=== PATIENT | female | born 1990 | race Two or more races ===

== ENCOUNTER 2017-01-04 07:38 | Inpatient (IN) | payer MEDICAID, OTHER ==
[~2017-01-04] VITALS: Ht 152.4 cm; Wt 68.6 kg
[2017-01-04 08:14] VITALS: BP 131/83
[2017-01-04 08:33] VITALS: BP 131/83
[2017-01-04] MEDS ORDERED: FLU VACC QS2017-18 (36MOS+) UP/PF 0.5 ML IM-VACC ONE (09:00)
[2017-01-04] MEDS ORDERED: FENTANYL PF 100 MCG/2ML ONE ×2 (10:53→18:34)
[2017-01-04] MEDS: FENTANYL PF 100 MCG/2ML IVPush PRN ×2 (10:59→15:12)
[2017-01-04] MEDS ORDERED: LACTATED RINGERS 1,000 ML IVBOLUS ONE ×2 (11:00→14:30)
[2017-01-04] MEDS: D5%-LACTATED RINGERS 1,000 ML IV SCH ×2 (11:15→20:00)
[2017-01-04] MEDS ORDERED: LACTATED RINGERS 1,000 ML IV SCH ×2 (14:00→14:08)
[2017-01-04] MEDS ORDERED: OXYTOCIN 30U/ 0.9% NaCL 500ML 500 ML IV SCH ×2 (14:08→20:21)
[2017-01-04 14:45] LABS: HEMATOCRIT 37.1 % (34.6-47.8); HEMOGLOBIN 12.6 g/dL (11.7-16.4); WHITE BLOOD COUNT 11.1 x10^3/uL (3.4-10)
[2017-01-04] MEDS ORDERED: SODIUM CITRATE/CITRIC ACID 30 ML UDC ONE ×2 (16:31→18:33)
[2017-01-04] MEDS ORDERED: METOCLOPRAMIDE 5 MG/ML, 2ML ONE ×2 (16:32→18:33)
[2017-01-04] MEDS ORDERED: MISOPROSTOL 200 MCG TABLET ONE (16:32)
[2017-01-04] MEDS ORDERED: OXYTOCIN 30U/ 0.9% NaCL 500ML 500 ML ONE (16:32)
[2017-01-04] MEDS ORDERED: NEWBORN KIT ONE (16:33)
[2017-01-04] MEDS ORDERED: METOCLOPRAMIDE 5 MG/ML, 2ML IVPush ONE (17:30)
[2017-01-04] MEDS ORDERED: SODIUM CITRATE/CITRIC ACID 30 ML UDC PO ONE (17:30)
[2017-01-04] MEDS ORDERED: ONDANSETRON 2MG/ML, 2ML ONE (18:34)
[2017-01-04] MEDS ORDERED: KETOROLAC 30 MG/1 ML ONE (18:34)
[2017-01-04] MEDS ORDERED: OXYTOCIN 10 UNITS/ML, 1ML ONE (18:34)
[2017-01-04] MEDS ORDERED: DEXAMETHASONE 4 MG/ML, 1ML ONE (18:34)
[2017-01-04] MEDS ORDERED: EPHEDRINE 50 MG/ML, 1ML ONE (18:34)
[2017-01-04] MEDS ORDERED: PHENYLEPHRINE 10 MG/ML ONE (18:34)
[2017-01-04] MEDS ORDERED: CEFAZOLIN 1,000 MG ONE (18:34)
[2017-01-04] MEDS ORDERED: OXYcodone/APAP 5/325MG TABLET PO PRN (20:30)
[2017-01-04] MEDS ORDERED: CALCIUM CARBONATE 500 MG TAB.CHEW PO PRN (20:30)
[2017-01-04] MEDS ORDERED: OXYTOCIN 10 UNITS/ML, 1ML IM PRN (20:30)
[2017-01-04] MEDS ORDERED: MAGNESIUM HYDROXIDE 8%, 30ML UDC PO PRN (20:30)
[2017-01-04] MEDS ORDERED: ONDANSETRON 2MG/ML, 2ML IV PRN (20:30)
[2017-01-04] MEDS ORDERED: METHYLERGONOVINE 0.2 MG/ML IM PRN (20:30)
[2017-01-04] MEDS ORDERED: ACETAMINOPHEN 325 MG TABLET PO PRN (20:30)
[2017-01-04] MEDS ORDERED: OXYcodone 5 MG/5 ML ORAL.SOL UDC ONE (20:41)
[2017-01-04] MEDS: OXYTOCIN 30U/ 0.9% NaCL 500ML 500 ML IV SCH (20:47)
[2017-01-04] MEDS ORDERED: OXYcodone 5 MG/5 ML ORAL.SOL UDC PO PRN (21:00)
[2017-01-04 21:50] VITALS: BP 139/91
[2017-01-04] MEDS: OXYcodone IR 5MG TABLET PO PRN (22:33)
[2017-01-05 00:30] VITALS: BP 113/62
[2017-01-05] MEDS: ACETAMINOPHEN 325 MG TABLET PO PRN ×3 (00:53→21:18)
[2017-01-05] MEDS: IBUPROFEN 600 MG TABLET PO PRN ×3 (03:15→16:57)
[2017-01-05] MEDS: OXYcodone IR 5MG TABLET PO PRN ×5 (03:16→21:18)
[2017-01-05 05:18] LABS: HEMATOCRIT 33.8 % (34.6-47.8); HEMOGLOBIN 11.6 g/dL (11.7-16.4)
[2017-01-05 05:30] VITALS: BP 110/64
[2017-01-05] MEDS: OXYTOCIN 30U/ 0.9% NaCL 500ML 500 ML IV SCH ×2 (06:21→16:21)
[2017-01-05] MEDS ORDERED: PRENATAL VIT/IRON/FA 1 EACH TABLET ONE (07:57)
[2017-01-05] MEDS: PRENATAL VIT/IRON/FA 1 EACH TABLET PO SCH (08:00)
[2017-01-05] MEDS: DOCUSATE 100 MG CAPSULE PO PRN ×2 (08:00→21:16)
[2017-01-05 21:00] VITALS: BP 103/59
[2017-01-06] MEDS: OXYcodone IR 5MG TABLET PO PRN ×5 (01:15→22:17)
[2017-01-06] MEDS: IBUPROFEN 600 MG TABLET PO PRN ×3 (01:15→22:17)
[2017-01-06] MEDS: OXYTOCIN 30U/ 0.9% NaCL 500ML 500 ML IV SCH ×3 (02:21→22:21)
[2017-01-06] MEDS: ACETAMINOPHEN 325 MG TABLET PO PRN ×2 (05:23→18:10)
[2017-01-06 07:31] VITALS: BP 109/69
[2017-01-06] MEDS: PRENATAL VIT/IRON/FA 1 EACH TABLET PO SCH (07:38)
[2017-01-06] MEDS: DOCUSATE 100 MG CAPSULE PO PRN ×2 (07:38→22:17)
[2017-01-06 20:00] VITALS: BP 114/65
[2017-01-07] MEDS: ACETAMINOPHEN 325 MG TABLET PO PRN ×3 (02:06→10:43)
[2017-01-07] MEDS: OXYcodone IR 5MG TABLET PO PRN ×3 (02:06→10:43)
[2017-01-07] MEDS ORDERED: OXYC-302 PO (08:14)
[2017-01-07] MEDS ORDERED: IBUP-1222 PO (08:15)
[2017-01-07] MEDS: OXYTOCIN 30U/ 0.9% NaCL 500ML 500 ML IV SCH (08:21)
[2017-01-07] MEDS: PRENATAL VIT/IRON/FA 1 EACH TABLET PO SCH (10:43)
[2017-01-07] MEDS: DOCUSATE 100 MG CAPSULE PO PRN (10:43)
[2017-01-07] MEDS: IBUPROFEN 600 MG TABLET PO PRN (10:43)
== END 2017-01-07 12:41 | disposition home or self-care (01) | DRG 766 ==
LOC: LDOP 07:38 → LDIP 14:08 → 2NW 21:28
PROVIDERS: ADMIT Obstetrics & Gynecology; ATTEND Obstetrics & Gynecology
PROC: 10D00Z1 Extraction of Products of Conception, Low, Open Approach (ICD-10-PCS; principal; 2017-01-04)
DX: O34.211 Maternal care for low transverse scar from previous cesarean delivery (principal); K66.0 Peritoneal adhesions (postprocedural) (postinfection); Z37.0 Single live birth; Z3A.38 38 weeks gestation of pregnancy; O75.89 Other specified complications of labor and delivery
CPT/HCPCS: 36415; 85025; 86850; 86900; 90686; J0690; J1100; J1885; J2405; J3010; J2370; J2590; J2765; J7120; J7121